=== PATIENT | male | born 1955 | race Caucasian/White ===

== ENCOUNTER 2017-08-08 03:30 | Outpatient (CLI) | payer OTHER | END 2017-08-08 03:31 | disposition home or self-care (01) | LOC: BICRAD 03:30 | PROVIDERS: ATTEND Family Medicine | DX: M25.512 Pain in left shoulder (principal); M19.012 Primary osteoarthritis, left shoulder ==

== ENCOUNTER 2019-07-24 08:05 | Outpatient (CLI) | payer OTHER ==
--- NOTE | 2019-07-24 08:13 | RAD ---
EXAM: Chest 2 views: HISTORY: Cough COMPARISON: None. FINDINGS: There is a normal-sized cardiomediastinal silhouette. There is no evidence of consolidation, mass, or pleural effusion. The patient has had bilateral shoulder replacement surgery. IMPRESSION: No evidence of acute cardiopulmonary disease
== END 2019-07-24 08:06 | disposition home or self-care (01) ==
LOC: RAD-FRANK 08:05
PROVIDERS: ATTEND Nurse Practitioner Family
DX: R05 Cough (principal)
CPT/HCPCS: 71046

== ENCOUNTER 2019-12-12 10:32 | Inpatient (IN) | payer OTHER ==
[2020-01-24 14:33] VITALS: BMI 31.5
[2020-01-27] MEDS ORDERED: Fentanyl 100 MCG/2 ML VIAL ONE ×4 (06:01→10:45)
[2020-01-27] MEDS ORDERED: Tranexamic Acid 1,000 MG/10 ML VIAL ONE ×2 (06:12→09:40)
[2020-01-27] MEDS ORDERED: Vancomycin 1.5 GRAM/300 ML BAG 1.5 GM/300 ML BAG ONE (06:12)
[2020-01-27] MEDS ORDERED: Sodium Chloride 0.9% 100 ML ONE (06:12)
[2020-01-27] MEDS ORDERED: Bupivacaine PF 0.5% 30 ML VIAL ONE (06:21)
[2020-01-27] MEDS ORDERED: Midazolam HCl 2 mg/2 ml Vial ONE (06:36)
[2020-01-27] MEDS ORDERED: Lidocaine 1% (PF) 30 ML VIAL ONE (06:42)
[2020-01-27] MEDS ORDERED: Clindamycin/D5W 600 mg/50 ml Premix Bag ONE (06:55)
[2020-01-27] MEDS ORDERED: traMADol HCl 50 MG TAB PO PRN ×2 (07:27→07:50)
[2020-01-27] MEDS ORDERED: Ondansetron PF 4 MG/2 ML Vial IVP PRN ×2 (07:27→07:50)
[2020-01-27] MEDS ORDERED: Fentanyl 100 MCG/2 ML VIAL SLOW IVP PRN (07:27)
[2020-01-27] MEDS ORDERED: diphenhydrAMINE 25 MG CAP PO PRN (07:27)
[2020-01-27] MEDS ORDERED: Promethazine HCl 25 MG/ML VIAL IM PRN ×3 (07:27→09:18)
[2020-01-27] MEDS ORDERED: Zolpidem Tartrate 5 MG TAB PO PRN ×2 (07:27→07:50)
[2020-01-27] MEDS ORDERED: Acetaminophen 325 MG TAB PO PRN ×2 (07:27→07:50)
[2020-01-27] MEDS ORDERED: Tranexamic Acid 1,000 MG in Sodium Chloride 0.9% 100 ML IVPB SCH (07:30)
[2020-01-27] MEDS ORDERED: Pentazocine HCl/Naloxone HCl 50/0.5 MG TAB PO PRN (07:30)
[2020-01-27] MEDS ORDERED: Vancomycin HCl 1.5 GM in Sodium Chloride 0.9% 250 ML 300 ML IVPB SCH (07:30)
[2020-01-27] MEDS ORDERED: HYDROcodone/Acetaminophen 10/325 mg Tablet PO PRN (07:50)
[2020-01-27] MEDS ORDERED: Fentanyl 100 MCG/2 ML VIAL IV PRN (07:50)
[2020-01-27] MEDS ORDERED: hydrALAZINE 20 MG/ML VIAL SLOW IVP PRN (08:29)
[2020-01-27] MEDS ORDERED: Non-Formulary Item 1 EACH (Losartan Potassium [Losartan Potassium] 50 MG) PO SCH (09:00)
[2020-01-27] MEDS ORDERED: Dutasteride 0.5 MG CAP PO SCH (09:00)
[2020-01-27] MEDS ORDERED: Non-Formulary Item 1 EACH (Gabapentin [Gabapentin] 1 TAB) PO SCH (09:00)
[2020-01-27] MEDS ORDERED: Ondansetron HCl/PF 4 MG/2 ML Vial IVP PRN (09:18)
[2020-01-27] MEDS ORDERED: Promethazine HCl 25 MG/ML VIAL SLOW IVP PRN (09:18)
[2020-01-27] MEDS ORDERED: HYDROmorphone 2 MG/ML VIAL SLOW IVP PRN (09:18)
--- NOTE | 2020-01-27 09:32 | OP ---
DATE OF PROCEDURE: 01/27/2020 TERRAZZO TILE MAKER: Xavier Ruiz PA-C PREOPERATIVE DIAGNOSIS: Right knee posttraumatic osteoarthrosis. POSTOPERATIVE DIAGNOSIS: Right knee posttraumatic osteoarthrosis. PROCEDURE: Right total knee replacement using Kluster pinless navigation system. ANESTHESIA: General anesthetic as well as a preoperative block. BLOOD LOSS: Minimal. COMPLICATIONS: None. TOURNIQUET TIME: DISPOSITION: Recovery room in stable condition. IMPLANTS: Hooper Triathlon total knee system. The implants are as follows. The femur was a size 6 right cruciate-retaining femur with a size 6 primary tibial base plate. We used a 6 x 9 mm CS X3 tibial bearing and an asymmetric 32 x 10 X3 patella. INDICATIONS: A 64-year-old male who comes in with complaints of longstanding right knee pain and swelling despite numerous years of nonoperative treatment including injections, therapy, and oral modalities. At this time, he opted to have surgery on the right knee. PROCEDURE IN DETAIL: After all appropriate consent forms were explained and signed, the patient was taken back to the operating room and at this time was given general anesthetic. Once the level of anesthesia was appropriate, a well-padded tourniquet was placed on the right leg, and the leg was then prepped and draped in standard surgical fashion. The limb was exsanguinated and tourniquet taken up to 300 mmHg. Midline incision was made with a 10 blade down through the skin and subcutaneous tissue. Bovie electrocautery was used to coagulate any brisk venous bleeding. A new blade was used to make a medial parapatellar arthrotomy. Small subperiosteal release was performed medially and excess fat pad was removed. The knee was flexed up to gain access to the femur. The femur was navigated and distal femoral resection was made. Epicondylar access was used to align our sizing jig and this was pinned in place. We sized our femur to be a 6. 4:1 cutting block was applied and pinned. Anterior and posterior chamfer cuts were then made. We navigated out our proximal tibia and made our proximal tibial resection. Spreaders were used to remove any posterior osteophytes off the back of the femur as well as remaining meniscal tissue. A long alignment sharmin was then used to achieve correct rotation of our tibial baseplate and a size 6 was chosen. This was pinned in place. We trialed the polyethylene and a 6 x 9 mm CS X3 tibial bearing polyethylene gave us full extension and good stability throughout range of motion. Two towel clips and a saw were used to cut our patella. Three lug nuts were drilled and an asymmetric 32 x 10 X3 patella was trialed which sat nicely in the trochlear groove. We then drilled our femur and punched our tibia. All components were removed. The knee was thoroughly irrigated and dried. Cement was mixed into the cement gun on the back table. Components were then placed. The knee was held out in full extension until the cement had dried. All excess bone cement was removed. Multiple #2 Vicryl stitches as well as a Quill were used to close our extensor mechanism. 0 Quill followed by a running Monoderm was then used to close the skin. Surgicel glue was then used on the skin. Once this had dried, soft tissue dressing was applied to the limb, tourniquet was let down, and the toes pinked up nicely. The patient was then awakened and taken to the recovery room in stable condition. All counts were correct at the end of the case. The patient did receive preoperative IV antibiotics. The patient was injected with Marcaine for postoperative pain relief. Job ID: [id number]
[2020-01-27] MEDS ORDERED: Ketorolac Tromethamine 30 MG/ML VIAL ONE (10:24)
[2020-01-27] MEDS ORDERED: Bupivacaine HCl 0.5%/Epinephrine 1:200,000/PF 30 ml Vial ONE (11:51)
[2020-01-27] MEDS ORDERED: PROPOFOL 200 MG/20 ML VIAL ONE (11:51)
[2020-01-27] MEDS ORDERED: Dexamethasone 20 MG/5 ML VIAL ONE (11:51)
[2020-01-27] MEDS ORDERED: Ropivacaine 0.2% HCl/PF (40 MG/20 ML VIAL) ONE (11:51)
[2020-01-27] MEDS ORDERED: Ondansetron PF 4 MG/2 ML Vial ONE (11:51)
[2020-01-27] MEDS ORDERED: Ketorolac Tromethamine 30 MG/ML VIAL IVP SCH ×2 (12:00→14:00)
[2020-01-27] MEDS: Dutasteride 0.5 MG CAP PO SCH (12:19)
[2020-01-27] MEDS: Aspirin 81 mg Enteric Coated Tablet PO SCH ×2 (12:19→20:43)
[2020-01-27] MEDS: Amlodipine 5 MG TAB PO SCH (12:19)
[2020-01-27] MEDS: Multivitamin W/ Minerals 1 TAB PO SCH (12:20)
[2020-01-27] MEDS: Losartan 25 MG TAB PO SCH (12:20)
[2020-01-27] MEDS: Gabapentin 400 MG CAP PO SCH ×2 (12:20→20:43)
[2020-01-27] MEDS: Tamsulosin HCl 0.4 MG CAP PO SCH (12:20)
[2020-01-27] MEDS: Senokot S 8.6-50 MG TAB PO SCH ×2 (12:20→20:43)
[2020-01-27] MEDS: Ferrous Gluconate 324 MG TAB PO SCH ×2 (12:20→20:43)
--- NOTE | 2020-01-27 15:09 | PDOC.HOSPP ---
- Subjective Encounter Date: 01/27/20 Encounter Time: 14:00 Subjective: Patient seen and examined for med mngt. Pain controlled. No new complaints. No overnight events - Objective Vital Signs & Weight: Vital Signs (12 hours) Temp Pulse Resp BP Pulse Ox 01/27/20 12:19 64 01/27/20 11:50 97 01/27/20 11:17 97.6 F 64 16 152/88 H 97 Weight Weight 220 lb Additional Labs: Laboratory Tests 01/24/20 01/24/20 16:16 16:16 Hgb 15.1 Hct 45.7 BUN 13 Creatinine 0.99 EKG Reviewed by me: Yes (SR) Hospitalist ROS - Review of Systems Respiratory: denies: cough, dry, shortness of breath, hemoptysis, SOB with excertion, pleuritic pain, sputum, wheezing, other Cardiovascular: denies: chest pain, palpitations, orthopnea, paroxysmal noc. dyspnea, edema, light headedness, other Gastrointestinal: denies: nausea, vomiting, abdominal pain, diarrhea, constipation, melena, hematochezia, other - Medication Medications: Active Medications Generic Name Dose Route Start Last Admin Trade Name Freq PRN Reason Stop Dose Admin Amlodipine Besylate 5 mg 01/27/20 09:00 01/27/20 12:19 Norvasc PO Not Given DAILY [facility] Aspirin 81 mg 01/27/20 09:00 01/27/20 12:19 Ecotrin PO Not Given BID [facility] Dutasteride 0.5 mg 01/27/20 09:00 01/27/20 12:19 Avodart PO Not Given DAILY [facility] Ferrous Gluconate 324 mg 01/27/20 09:00 01/27/20 12:20 Fergon PO Not Given BID [facility] Gabapentin 800 mg 01/27/20 09:00 01/27/20 12:20 Neurontin PO Not Given BID [facility] Iron/Minerals/Multivitamins 1 tab 01/27/20 09:00 01/27/20 12:20 Theragran M PO Not Given DAILY [facility] Losartan Potassium 50 mg 01/27/20 09:00 01/27/20 12:20 Cozaar PO Not Given DAILY [facility] Senna/Docusate Sodium 2 tab 01/27/20 09:00 01/27/20 12:20 Senokot S PO Not Given BID [facility] Tamsulosin HCl 0.4 mg 01/27/20 09:00 01/27/20 12:20 Flomax PO Not Given DAILY ANTONIA - Exam General Appearance: NAD Neck: supple, no JVD Heart: RRR, no gallops Respiratory: no wheezes, no rales Gastrointestinal: non-tender, non-distended, no guarding, no rigidity Extremities: no cyanosis Neurological: no new deficit Hosp A/P - Plan DVT proph w/SCDs HTN HLD BPH Obesity BMI 31.6 CKD 2 DJD Diverticulosis PLAN: Cont Losartan Cont Amlodipine Cont Gabapentin Cont Flomax/Avodart Cont supportive care PT/OT
[2020-01-27] MEDS: Clindamycin/D5W 900 MG in Premix Bag 1 BAG IVPB SCH ×2 (15:26→20:46)
[2020-01-27] MEDS: Sodium Chloride 0.9% 1,000 ML IV SCH ×2 (16:14→20:44)
[2020-01-27] MEDS: Ketorolac Tromethamine 30 MG/ML VIAL IVP SCH ×2 (18:16→23:01)
[2020-01-28] MEDS: Sodium Chloride 0.9% 1,000 ML IV SCH ×3 (03:29→23:59)
[2020-01-28 05:30] LABS: Hemoglobin 12.4 g/dL (14.0-18.0); Mean Corpuscular HGB CONC 35.4 g/dL (32.0-36.0); Mean Corpuscular Volume 93.2 fL (78.0-98.0); Mean Platelet Volume 8.2 fL (7.4-10.4); Platelet Count 157 thou/uL (130-400); RBC Distribution Width 11.9 % (11.5-14.5); Red Blood Cell (RBC) Count 3.76 mill/uL (4.70-6.10); White Blood Cell (WBC) Count 9.8 thou/uL (4.8-10.8)
[2020-01-28] MEDS: Ketorolac Tromethamine 30 MG/ML VIAL IVP SCH ×4 (05:43→23:58)
[2020-01-28] MEDS: traMADol HCl 50 MG TAB PO PRN ×2 (06:05→14:16)
[2020-01-28] MEDS: Aspirin 81 mg Enteric Coated Tablet PO SCH ×2 (08:03→20:10)
[2020-01-28] MEDS: Senokot S 8.6-50 MG TAB PO SCH ×2 (08:04→20:10)
[2020-01-28] MEDS: Gabapentin 400 MG CAP PO SCH ×2 (08:04→20:10)
[2020-01-28] MEDS: Ferrous Gluconate 324 MG TAB PO SCH ×2 (08:04→20:10)
[2020-01-28] MEDS: Dutasteride 0.5 MG CAP PO SCH (08:04)
[2020-01-28] MEDS: Losartan 25 MG TAB PO SCH (08:04)
[2020-01-28] MEDS: Amlodipine 5 MG TAB PO SCH (08:05)
[2020-01-28] MEDS: Tamsulosin HCl 0.4 MG CAP PO SCH (08:05)
[2020-01-28] MEDS: Multivitamin W/ Minerals 1 TAB PO SCH (08:05)
--- NOTE | 2020-01-28 08:49 | PDOC.HOSPP ---
- Subjective Encounter Date: 01/28/20 Encounter Time: 08:48 Subjective: Patient seen and examined for med mngt. No new complaints. No overnight events - Objective Vital Signs & Weight: Vital Signs (12 hours) Temp Pulse Resp BP Pulse Ox 01/28/20 08:05 55 L 01/28/20 07:38 99 F 55 L 16 147/84 H 96 01/28/20 03:00 98.2 F 67 18 151/70 H 98 01/27/20 23:03 98.3 F 62 18 131/77 97 Weight Weight 220 lb I&O: 01/27/20 01/28/20 01/29/20 06:59 06:59 06:59 Intake Total 890 Output Total 2 Balance 888 Result Diagrams: 01/28/20 04:54 Hospitalist ROS - Review of Systems Respiratory: denies: cough, dry, shortness of breath, hemoptysis, SOB with excertion, pleuritic pain, sputum, wheezing, other Cardiovascular: denies: chest pain, palpitations, orthopnea, paroxysmal noc. dyspnea, edema, light headedness, other - Medication Medications: Active Medications Generic Name Dose Route Start Last Admin Trade Name Freq PRN Reason Stop Dose Admin Amlodipine Besylate 5 mg 01/27/20 09:00 01/28/20 08:05 Norvasc PO 5 mg DAILY ANTONIA Administration Aspirin 81 mg 01/27/20 09:00 01/28/20 08:03 Ecotrin PO 81 mg BID ANTONIA Administration Dutasteride 0.5 mg 01/27/20 09:00 01/28/20 08:04 Avodart PO 0.5 mg DAILY ANTONIA Administration Ferrous Gluconate 324 mg 01/27/20 09:00 01/28/20 08:04 Fergon PO 324 mg BID ANTONIA Administration Gabapentin 800 mg 01/27/20 09:00 01/28/20 08:04 Neurontin PO 800 mg BID ANTONIA Administration Sodium Chloride 1,000 mls @ 100 mls/hr 01/27/20 07:30 01/28/20 03:29 Normal Saline 0.9% IV Not Given .Q10H [facility] Iron/Minerals/Multivitamins 1 tab 01/27/20 09:00 01/28/20 08:05 Theragran M PO 1 tab DAILY AN[facility] Administration Ketorolac Tromethamine 30 mg 01/27/20 18:00 01/28/20 05:43 Toradol IVP 01/29/20 12:01 30 mg Q6HR ANTONIA Administration Losartan Potassium 50 mg 01/27/20 09:00 01/28/20 08:04 Cozaar PO 50 mg DAILY ANTONIA Administration Senna/Docusate Sodium 2 tab 01/27/20 09:00 01/28/20 08:04 Senokot S PO 2 tab BID ANTONIA Administration Tamsulosin HCl 0.4 mg 01/27/20 09:00 01/28/20 08:05 Flomax PO 0.4 mg DAILY ANTONIA Administration Tramadol HCl 50 mg 01/27/20 07:50 01/28/20 06:05 Ultram PO 50 mg Q6H PRN Administration Mild Pain (1-3) - Exam General Appearance: NAD Psychiatric: normal affect, A&O x 3 Hosp A/P - Plan DVT proph w/SCDs HTN HLD BPH Obesity BMI 31.6 CKD 2 DJD Diverticulosis PLAN: Cont Losartan/Amlodipine Cont Gabapentin/Flomax/Avodart Cont supportive care Cont other meds as above PT/OT Will sign off. Please call for any questions
--- NOTE | 2020-01-28 10:07 | PRG ---
DATE OF SERVICE: 01/28/2020 SUBJECTIVE: Wali is a 64-year-old male, who is postop day 1 from a right total knee arthroplasty. He is doing relatively well. He has no complaints and his pain is very well controlled. He walked 160 feet yesterday evening after surgery. OBJECTIVE: VITAL SIGNS: Temperature 99, pulse 55, respiratory rate 16 and unlabored, blood pressure is 147/84. GENERAL: He is alert and oriented to person, place, time, and situation, responsive and appropriate with examiner. EXTREMITIES: He is neurovascularly intact in the right lower extremity and his incision is clean. No strike through erythema. LABORATORY DATA: Hemoglobin and hematocrit 12.4 and 35.1. IMPRESSION: A 64-year-old male postoperative day 1 right total knee arthroplasty, doing very well with pain control. PLAN: Continue current care and probable discharge to home tomorrow. Job ID: [id number]
[2020-01-28] MEDS: HYDROcodone/Acetaminophen 10/325 mg Tablet PO PRN ×2 (10:09→20:09)
[2020-01-28] MEDS: Ropivacaine HCl/PF 250 ML in Premix Bag 1 BAG NERVE BLCK SCH ×2 (10:09→17:02)
[2020-01-29 05:14] LABS: Hemoglobin 11.4 g/dL (14.0-18.0); Mean Corpuscular Hemoglobin 30.9 pg (27.0-31.0); Mean Corpuscular Volume 93.7 fL (78.0-98.0); Mean Platelet Volume 8.4 fL (7.4-10.4); Platelet Count 147 thou/uL (130-400); RBC Distribution Width 11.9 % (11.5-14.5); White Blood Cell (WBC) Count 7.2 thou/uL (4.8-10.8)
[2020-01-29] MEDS: HYDROcodone/Acetaminophen 10/325 mg Tablet PO PRN (05:47)
[2020-01-29] MEDS: Ketorolac Tromethamine 30 MG/ML VIAL IVP SCH ×2 (05:48→11:40)
[2020-01-29] MEDS: Gabapentin 400 MG CAP PO SCH (09:08)
[2020-01-29] MEDS: Aspirin 81 mg Enteric Coated Tablet PO SCH (09:08)
[2020-01-29] MEDS: Senokot S 8.6-50 MG TAB PO SCH (09:09)
[2020-01-29] MEDS: Tamsulosin HCl 0.4 MG CAP PO SCH (09:09)
[2020-01-29] MEDS: Ferrous Gluconate 324 MG TAB PO SCH (09:09)
[2020-01-29] MEDS: Multivitamin W/ Minerals 1 TAB PO SCH (09:09)
[2020-01-29] MEDS: Losartan 25 MG TAB PO SCH (09:09)
[2020-01-29] MEDS: Amlodipine 5 MG TAB PO SCH (09:09)
[2020-01-29] MEDS: Dutasteride 0.5 MG CAP PO SCH (09:10)
[2020-01-29] MEDS: Sodium Chloride 0.9% 1,000 ML IV SCH (09:33)
[2020-01-29 11:52] VITALS: BP 173/80; TEMP 98.9
== END 2020-01-29 14:00 | disposition home or self-care (01) | DRG 470 ==
LOC: SURG A 01-27 05:41 → SURG B 01-27 11:22
PROVIDERS: ADMIT Orthopaedic Surgery; ATTEND Orthopaedic Surgery
PROC: 0SRC0J9 Replacement of Right Knee Joint with Synthetic Substitute, Cemented, Open Approach (ICD-10-PCS; principal; 2020-01-27)
DX: M17.31 Unilateral post-traumatic osteoarthritis, right knee (principal); N40.0 Benign prostatic hyperplasia without lower urinary tract symptoms; I12.9 Hypertensive chronic kidney disease with stage 1 through stage 4 chronic kidney disease, or unspecified chronic kidney disease; E78.5 Hyperlipidemia, unspecified; N18.9 Chronic kidney disease, unspecified; E66.9 Obesity, unspecified; K57.90 Diverticulosis of intestine, part unspecified, without perforation or abscess without bleeding; Z68.31 Body mass index [BMI] 31.0-31.9, adult; Z88.0 Allergy status to penicillin; Z88.5 Allergy status to narcotic agent
CPT/HCPCS: 36415; 80048; 81001; 85025; 85027; 85610; 87081; 87635; 93005; 93010; C1713; C1776; J0670; J0690; J1100; J1885; J2001; J2250; J2405; J2704; J2795; J3010; J3370; J3490; S0020; U0003

== ENCOUNTER 2020-05-01 06:48 | Outpatient (CLI) | payer OTHER ==
[2020-05-01 14:36] LABS: INR-International Normal Ratio 1.1
[2020-05-01 14:48] LABS: Hemoglobin 15.1 g/dL (14.0-18.0); Mean Corpuscular HGB CONC 34.2 g/dL (32.0-36.0); Mean Corpuscular Hemoglobin 30.8 pg (27.0-31.0); Mean Corpuscular Volume 90.2 fL (78.0-98.0); Mean Platelet Volume 8.6 fL (7.4-10.4); Platelet Count 194 thou/uL (130-400); RBC Distribution Width 12.3 % (11.5-14.5); Red Blood Cell (RBC) Count 4.89 mill/uL (4.70-6.10); White Blood Cell (WBC) Count 6.4 thou/uL (4.8-10.8)
[2020-05-01 16:03] LABS: Anion Gap 14 mmol/L (10-20); BUN (Urea Nitrogen) 14 mg/dL (8.4-25.7); Calc. Creatinine Clearance 0 mL/min (70-130); Calcium 9.4 mg/dL (7.8-10.44); Carbon Dioxide 25 mmol/L (23-31); Chloride 103 mmol/L (98-107); Estimated GFR-MDRD Greater than 90; Glucose 92 mg/dL (80-115); Potassium 4.3 mmol/L (3.5-5.1); Sodium 138 mmol/L (136-145)
[2020-05-02 12:19] LABS: SARS-CoV-2 MS2 Positive; SARS-CoV-2 N Gene Negative; SARS-CoV-2 S Gene Negative; SARS-CoV-2 by NAA Not Detected (NotDetected); SARS-CoV-2 orf1ab Negative
== END 2020-05-01 06:49 | disposition home or self-care (01) ==
LOC: LABBT 06:48
PROVIDERS: ATTEND Urology
DX: Z01.812 Encounter for preprocedural laboratory examination (principal); Z20.828 Contact with and (suspected) exposure to other viral communicable diseases; N40.1 Benign prostatic hyperplasia with lower urinary tract symptoms; R97.20 Elevated prostate specific antigen [PSA]; N52.9 Male erectile dysfunction, unspecified; R39.14 Feeling of incomplete bladder emptying; Z80.42 Family history of malignant neoplasm of prostate
CPT/HCPCS: 80048; 85027; 85610; 85730; 87635; U0003

== ENCOUNTER 2020-05-06 05:56 | Day surgery (SDC) | payer OTHER ==
[2020-05-01 13:33] VITALS: BMI 31.5
[2020-05-06] MEDS ORDERED: Levofloxacin 500 mg/D5W 100 ml Premix Bag ONE (07:18)
[2020-05-06] MEDS ORDERED: Fentanyl 100 MCG/2 ML VIAL ONE (08:03)
[2020-05-06] MEDS ORDERED: Phenazopyridine HCl 97.5 MG TABLET ONE (10:03)
[2020-05-06] MEDS ORDERED: PROPOFOL 200 MG/20 ML VIAL ONE (10:05)
--- NOTE | 2020-05-06 15:29 | OP ---
DATE OF PROCEDURE: 05/06/2020 PRIMARY CARE PHYSICIAN: Sudeep Landeros MD PREOPERATIVE DIAGNOSES: Mr. Ortiz is a 64-year-old male with history of benign prostatic hyperplasia, incomplete emptying on dual medical therapy. POSTOPERATIVE DIAGNOSES: Mr. Ortiz is a 64-year-old male with history of benign prostatic hyperplasia, incomplete emptying on dual medical therapy. PROCEDURES PERFORMED: Cystoscopy, UroLift implant x8, one pull through, total of 9 implants utilized. ANESTHESIA: TIVA. COMPLICATIONS: None apparent. DISPOSITION: To recovery room in stable condition. INDICATIONS FOR PROCEDURE AND HISTORY: Mr. Ortiz is a pleasant 64-year-old male with history of chronic incomplete emptying, has been on dual medical therapy and has persistent BPH symptoms and he desires to proceed with UroLift. We have fully discussed options of transurethral resection of prostate as well and he desired less invasive procedure due to less sexual side effects and faster recovery time. Risks and complications of UroLift have been discussed with him in detail including, but not limited to, bleeding, pain, infection, irritative voiding symptoms, infection, injury to adjacent organs, possible secondary definitive surgery such as TURP, possible exposure and migration of the implant resulting in secondary procedure. All questions were answered to his satisfaction and he desired to proceed without reservation. DESCRIPTION OF PROCEDURE: After an informed consent was signed, the patient was taken to the operating room, placed in a dorsal lithotomy position with the genital area prepped and draped in the usual surgical sterile fashion. A 21-Prydeinig cystoscope was utilized for cystoscopy, which demonstrated a subtle bulbar stricture, not warranting treatment, it was wide caliber. Prostatic urethra demonstrated severe bilobar hyperplasia with no median lobe and slightly high median bar. No median lobe was noted and the bladder demonstrated trabeculation consistent with chronic outlet obstruction. At this time, we transitioned to the UroLift implant visual obturator cystoscope. This was advanced to the level of the bladder. We placed a total of 3 implants on the left, and total of 5 on the right side. As there was persistent obstructing component near the bladder neck, we staggered an implant near the bladder neck. Care was taken to stay about 1.5 cm proximal to the bladder neck. We placed a 5th implant on the right at the apical portion of the prostate. One implant did pull-through on the right. In summary, a total of 5 implants on the right, 3 on the left with 1 pull through, a total of 9 implants were utilized. At the end of the procedure, he had a nice anterior channel created for him, tolerated the procedure well. I will monitor him for voiding trial in the recovery room. He will see me tomorrow for peak flow PVR. Discharged with Azo, ciprofloxacin for 5 days. Job ID: [id number]
== END 2020-05-06 10:30 | disposition home or self-care (01) ==
LOC: SDC 05:56
PROVIDERS: ATTEND Urology
PROC: 0T7D8DZ Dilation of Urethra with Intraluminal Device, Via Natural or Artificial Opening Endoscopic (ICD-10-PCS; principal; 2020-05-06)
DX: N40.1 Benign prostatic hyperplasia with lower urinary tract symptoms (principal); R39.14 Feeling of incomplete bladder emptying; R39.11 Hesitancy of micturition; R39.12 Poor urinary stream; R39.15 Urgency of urination; N52.9 Male erectile dysfunction, unspecified; E78.5 Hyperlipidemia, unspecified; I10 Essential (primary) hypertension; M19.90 Unspecified osteoarthritis, unspecified site; Z79.82 Long term (current) use of aspirin; Z79.899 Other long term (current) drug therapy; Z87.891 Personal history of nicotine dependence; Z88.0 Allergy status to penicillin; Z88.5 Allergy status to narcotic agent
CPT/HCPCS: C1889; J1956; J2704; J3010

== ENCOUNTER 2021-07-12 12:56 | Outpatient (CLI) | payer MEDICARE | END 2021-07-12 12:57 | disposition home or self-care (01) | LOC: RAD 12:56 | PROVIDERS: ATTEND Neurological Surgery | DX: M47.26 Other spondylosis with radiculopathy, lumbar region (principal) | CPT/HCPCS: 72100 ==

== ENCOUNTER 2022-10-16 14:33 | Observation (INO) | payer MEDICARE ==
[2022-10-16] MEDS ORDERED: LORazepam 2 MG/ML SYR.(CARPUJECT) ONE (15:09)
[2022-10-16 15:55] LABS: #Lymphocytes 2.7 thou/uL (1.20-3.40); #Monocytes 0.9 thou/uL (0.11-0.59); #Neutrophils 9.3 thou/uL (1.40-6.50); %Basophils 0.3 % (0.0-1.0); %Eosinophils 0.2 % (0.0-10.0); %Lymphocytes 21.1 % (21.0-51.0); %Monocytes 6.8 % (0.0-10.0); %Neutrophils 71.6 % (42.0-75.0); Hemoglobin 17.4 g/dL (14.0-18.0); Mean Corpuscular HGB CONC 34.6 g/dL (32.0-36.0); Mean Corpuscular Volume 92.3 fl (78.0-98.0); Mean Platelet Volume 8.2 fL (7.4-10.4); Platelet Count 297 10x3/uL (130-400); RBC Distribution Width 11.5 % (11.5-14.5); Red Blood Cell (RBC) Count 5.43 mill/uL (4.70-6.10)
[2022-10-16 16:03] LABS: Bilirubin Negative (Negative); Blood, Urine Negative (Negative); Clarity Clear (Clear); Glucose, Urine (Dipstick) Normal (Negative); Ketone, Urine Trace mg/dL (Negative); Leukocyte Negative Leu/uL (Negative); Nitrite Negative (Negative); Protein, Urine (Dipstick) Negative (Neg-Trace); Specific Gravity, Urine 1.008 (1.002-1.036); Urobilinogen Normal mg/dL (Less than 2); pH, Urine 6.5 (5.0-9.0)
[2022-10-16 16:11] LABS: Amphetamine Not Detected (NotDetected); Barbiturates Screen Not Detected (NotDetected); Benzodiazepine Screen Not Detected (NotDetected); Cocaine Metabolite Screen Not Detected (NotDetected); Methadone Not Detected (NotDetected); Methamphetamine Not Detected (NotDetected); Opiate Screen Not Detected (NotDetected); Oxycodone Screen Not Detected (NotDetected); Phencyclidine (PCP) Not Detected (NotDetected); THC/Cannabinoid Screen Not Detected (NotDetected); Tricyclic Screen Not Detected (NotDetected)
[2022-10-16 16:15] LABS: ALT (SGPT) 26 U/L (8-55); AST (SGOT) 30 U/L (5-34); Albumin 5.2 g/dL (3.4-4.8); Alkaline Phosphatase 58 U/L (40-110); Anion Gap 23 mmol/L (10-20); BUN (Urea Nitrogen) 10 mg/dL (8.4-25.7); Bilirubin, Total 1.6 mg/dL (0.2-1.2); CK (CPK) 327 U/L (30-200); Calc. Creatinine Clearance 0 mL/min (70-130); Calcium 10.5 mg/dL (7.8-10.44); Carbon Dioxide 20 mmol/L (23-31); Chloride 100 mmol/L (98-107); Estimated GFR 64; Globulin 2.9 g/dL (2.4-3.5); Glucose 107 mg/dL (80-115); Potassium 4.2 mmol/L (3.5-5.1); Protein, Total 8.1 g/dL (5.8-8.1); Sodium 139 mmol/L (136-145)
[2022-10-16 19:06] LABS: Lactic Acid 2.1 mmol/L (0.5-2.2)
[2022-10-16 19:31] VITALS: BMI 27.1
[2022-10-16] MEDS ORDERED: Acetaminophen 325 MG TAB PO PRN (20:40)
[2022-10-16] MEDS ORDERED: Senokot S 8.6-50 MG TAB PO PRN (20:40)
[2022-10-16] MEDS ORDERED: Ondansetron ODT 4 MG TAB PO PRN (20:40)
[2022-10-16] MEDS ORDERED: Ondansetron PF 4 MG/2 ML Vial IVP PRN (20:40)
[2022-10-16] MEDS: Famotidine 20 MG TAB PO SCH (22:02)
[2022-10-16] MEDS: Sodium Chloride 0.9% 1,000 ML IV SCH (22:03)
[2022-10-16] MEDS: Famotidine/PF 20 mg/2ml Vial SLOW IVP SCH (22:08)
[2022-10-17] MEDS: Sodium Chloride 0.9% 1,000 ML IV SCH (04:02)
[2022-10-17 05:45] LABS: Anion Gap 6 mmol/L (10-20); BUN (Urea Nitrogen) 12 mg/dL (8.4-25.7); Calc. Creatinine Clearance 106 mL/min (70-130); Calcium 8.5 mg/dL (7.8-10.44); Carbon Dioxide 25 mmol/L (23-31); Chloride 111 mmol/L (98-107); Estimated GFR 97; Glucose 86 mg/dL (80-115); Sodium 138 mmol/L (136-145)
[2022-10-17 08:24] LABS: #Basophils 0.1 thou/uL (0.0-0.2); #Eosinphils 0.1 thou/uL (0.0-0.7); #Lymphocytes 1.9 thou/uL (1.20-3.40); #Monocytes 0.5 thou/uL (0.11-0.59); #Neutrophils 3.8 thou/uL (1.40-6.50); %Eosinophils 1.3 % (0.0-10.0); %Lymphocytes 30.2 % (21.0-51.0); %Monocytes 7.7 % (0.0-10.0); %Neutrophils 59.8 % (42.0-75.0); Hemoglobin 14.5 g/dL (14.0-18.0); Mean Corpuscular HGB CONC 34.3 g/dL (32.0-36.0); Mean Corpuscular Hemoglobin 32.3 pg (27.0-31.0); Mean Corpuscular Volume 94.2 fl (78.0-98.0); Mean Platelet Volume 8.1 fL (7.4-10.4); Platelet Count 194 10x3/uL (130-400); RBC Distribution Width 11.5 % (11.5-14.5); Red Blood Cell (RBC) Count 4.48 mill/uL (4.70-6.10); White Blood Cell (WBC) Count 6.3 10x3/uL (4.8-10.8)
[2022-10-17] MEDS ORDERED: Non-Formulary Item 1 EACH (Gabapentin [Gabapentin] 800 MG Tablet) PO SCH (09:00)
[2022-10-17] MEDS ORDERED: Non-Formulary Item 1 EACH (Losartan Potassium [Losartan Potassium] 50 MG Tablet) PO SCH (09:00)
[2022-10-17] MEDS: pyridOXINE 50 MG (B6) TAB PO SCH (09:57)
[2022-10-17] MEDS: Losartan 25 MG TAB PO SCH (09:58)
[2022-10-17] MEDS: Amlodipine 5 MG TAB PO SCH (09:58)
[2022-10-17] MEDS: Gabapentin 400 MG CAP PO SCH ×2 (09:58→20:24)
[2022-10-17] MEDS: Famotidine/PF 20 mg/2ml Vial SLOW IVP SCH ×2 (09:59→20:24)
[2022-10-17] MEDS: Famotidine 20 MG TAB PO SCH ×2 (09:59→20:24)
[2022-10-17] MEDS ORDERED: Iopamidol 370 76% 100 ML VIAL ONE (10:42)
[2022-10-17] MEDS ORDERED: Lorazepam 2 MG/ML VIAL ONE (11:15)
[2022-10-17] MEDS ORDERED: Haloperidol Lactate 5 MG/ML VIAL ONE (11:18)
[2022-10-17] MEDS ORDERED: Haloperidol Lactate 5 MG/ML VIAL IM SCH (12:00)
[2022-10-17] MEDS ORDERED: Promethazine HCl 25 MG in Sodium Chloride 0.9% 50 ML IVPB SCH (12:00)
[2022-10-17] MEDS ORDERED: Multivitamins, Adult 10 ML, Folic Acid 1 MG, Thiamine HCl 100 MG in Dextrose 5 %-0.45 %... IV SCH (16:00)
[2022-10-17] MEDS ORDERED: Aspirin 81 mg Enteric Coated Tablet PO SCH (21:00)
[2022-10-17] MEDS ORDERED: Atorvastatin Calcium 10 MG TAB PO SCH (21:00)
[2022-10-18 03:30] VITALS: TEMP 97.8
[2022-10-18 05:12] LABS: #Basophils 0.1 thou/uL (0.0-0.2); #Eosinphils 0.1 thou/uL (0.0-0.7); #Lymphocytes 3.2 thou/uL (1.20-3.40); #Monocytes 0.6 thou/uL (0.11-0.59); #Neutrophils 4.6 thou/uL (1.40-6.50); %Basophils 0.7 % (0.0-1.0); %Lymphocytes 37.5 % (21.0-51.0); %Monocytes 7.3 % (0.0-10.0); %Neutrophils 53.4 % (42.0-75.0); Hemoglobin 14.9 g/dL (14.0-18.0); Mean Corpuscular Hemoglobin 32.9 pg (27.0-31.0); Mean Corpuscular Volume 93.9 fl (78.0-98.0); Mean Platelet Volume 7.9 fL (7.4-10.4); Platelet Count 198 10x3/uL (130-400); RBC Distribution Width 11.7 % (11.5-14.5); Red Blood Cell (RBC) Count 4.52 mill/uL (4.70-6.10); White Blood Cell (WBC) Count 8.6 10x3/uL (4.8-10.8)
[2022-10-18 05:39] LABS: ALT (SGPT) 17 U/L (8-55); AST (SGOT) 19 U/L (5-34); Albumin 3.9 g/dL (3.4-4.8); Alkaline Phosphatase 40 U/L (40-110); Anion Gap 12 mmol/L (10-20); BUN (Urea Nitrogen) 7 mg/dL (8.4-25.7); Bilirubin, Total 0.6 mg/dL (0.2-1.2); Calc. Creatinine Clearance 102 mL/min (70-130); Calcium 9.1 mg/dL (7.8-10.44); Carbon Dioxide 24 mmol/L (23-31); Chloride 106 mmol/L (98-107); Estimated GFR 96; Globulin 2.4 g/dL (2.4-3.5); Glucose 108 mg/dL (80-115); Potassium 3.7 mmol/L (3.5-5.1); Protein, Total 6.3 g/dL (5.8-8.1); Sodium 138 mmol/L (136-145)
[2022-10-18] MEDS: Gabapentin 400 MG CAP PO SCH (08:53)
[2022-10-18] MEDS: Amlodipine 5 MG TAB PO SCH (08:54)
[2022-10-18] MEDS: Famotidine/PF 20 mg/2ml Vial SLOW IVP SCH (08:55)
[2022-10-18] MEDS: pyridOXINE 50 MG (B6) TAB PO SCH (08:55)
[2022-10-18] MEDS: Losartan 25 MG TAB PO SCH (08:55)
[2022-10-18] MEDS: Famotidine 20 MG TAB PO SCH (08:55)
[2022-10-18 08:58] VITALS: BP 176/87
[2022-10-18] MEDS ORDERED: ALPRAZolam 0.25 MG TAB PO PRN (09:09)
== END 2022-10-18 14:50 ==
LOC: ERS 14:33 → 2NO 16:52
PROVIDERS: ADMIT Internal Medicine; ATTEND Internal Medicine
DX: R45.851 Suicidal ideations (principal); R41.0 Disorientation, unspecified; R45.1 Restlessness and agitation; I10 Essential (primary) hypertension; D72.829 Elevated white blood cell count, unspecified; E87.20 Acidosis, unspecified; E78.5 Hyperlipidemia, unspecified; G62.9 Polyneuropathy, unspecified; Z87.891 Personal history of nicotine dependence; Z79.82 Long term (current) use of aspirin; Z79.899 Other long term (current) drug therapy; Z88.0 Allergy status to penicillin; Z88.5 Allergy status to narcotic agent; Z20.822 Contact with and (suspected) exposure to COVID-19
CPT/HCPCS: 51701; 70450; 70551; 71260; 74177; 80048; 80053 ×2; 80306; 81003; 82550; 82962; 83605; 85025 ×3; 93005; 95816; 95819; 95957; 96361 ×2; 96374; 96376; 99285; G0378 ×4; J2060; U0003; U0005; 36415; 36416; J3411; J7042; J7050; Q9967

== ENCOUNTER 2024-09-19 09:45 | Outpatient (CLI) | payer MEDICARE | END 2024-09-19 09:46 | disposition home or self-care (01) | LOC: BICRAD 09:45 | PROVIDERS: ATTEND Psychiatry & Neurology Neurology | DX: M48.061 Spinal stenosis, lumbar region without neurogenic claudication (principal); M47.816 Spondylosis without myelopathy or radiculopathy, lumbar region | CPT/HCPCS: 72100 ==